=== PATIENT | female | born 1970 | race Caucasian/White ===

== ENCOUNTER 2016-09-18 04:48 | Emergency (ER) | payer OTHER ==
[~2016-09-18] VITALS: Ht 162.6 cm; Wt 113.4 kg
--- NOTE | ~2016-09-18 | CT4 ---
[facility] A Service of [facility] RADIOLOGY TEXT RESULTS PATIENT: HARRISON GONZALEZ LOCATION: [facility] : [birth year] UNIT #: [id number] AGE: [address]: Carmela Kinsey MD SEX: F ORDER DR: [id number] [facility] [address] [place], [place] [address] [id number] E MR#: [id number] Acc #: [id number] NAME: HARRISON GONZALEZ : 1970 SEX: F STUDY DATE/TIME: 09/18/2016 6:41 UNIT: [facility] ROOM: STUDY DESCRIPTION: CT Abd and Pelv Wo Cont Attending Physician: Carmela Kinsey M.D. Ordering Physician: Carmela Kinsey M.D. Primary Care Physician: Lola Pineda Aprn MEDICAL IMAGING REPORT This report is preliminary unless electronic signature is present EXAM Abdomen and pelvis CT without HISTORY Low back pain and spasms, worse today. Pain goes into the right side with leg weakness. 46-year-old female history of a hysterectomy. No history of cancer. COMMENT CT of the abdomen and pelvis performed in the axial plane without IV or oral contrast media using urinary tract stone protocol. Lack of intravenous and oral contrast media limits evaluation for pathology other than urinary tract calculus disease. This CT exam was performed with one or more of the following radiation dose reduction techniques: Automatic exposure control, adjustment of mA and/or kV according to patient size, and iterative reconstruction. COMPARISON There are is no comparison. FINDINGS Lung bases show mild atelectasis. Partly seen is a probable lymph node left lower axillary region about 1.0 cm dimension. Suggest clinical followup. If the patient has not had a recent mammogram, this is recommended. CT ABDOMEN: There is probably a mild fatty infiltration of the liver by Hounsfield unit measurements. The adrenal glands, spleen, noncontrast pancreas, gallbladder are unremarkable. There is a low-attenuation area in the posterior right interpolar kidney about 1.5 cm in diameter. It is probably a cyst but should be completely characterized with an ultrasound given its size. There is no abdominal aortic aneurysm. There is no intrarenal calculus or hydronephrosis. No ureteral calculus is seen. [facility] A Service of [facility] & [facility] RADIOLOGY TEXT RESULTS PATIENT: HARRISON GONZALEZ LOCATION: [facility] : [birth year] UNIT #: [id number] AGE: [address]: Carmela Kinsey MD SEX: F ORDER DR: Evaluation of the pelvis shows the bladder is decompressed and no bladder calculus is seen. Patient is post hysterectomy by history. There is likely a mass associated with the right ovary with calcification within it. This should be further evaluated with pelvic ultrasound. Main consideration at this time would be dermoid. No clear fat attenuation is appreciated. The lesion measures about 4.2 x 3.3 x 2.9 cm in dimension. Probably a left adnexal cyst but this would also be better characterized with ultrasound and it measures about 3 cm dimension. There is no free fluid in the pelvis. No drainable fluid collection suspected. There is no evidence for bowel obstruction or free intraperitoneal air. The appendix is borderline in size measuring up to about 1.1 cm in diameter but there is no periappendiceal inflammatory change. I would doubt that this is a manifestation of appendicitis, but please correlate further clinically as well given the size measurement. The evaluation of the appendix is limited on a CT without IV or oral contrast media. Degenerative change is noted at L5-S1. IMPRESSION 1. There is likely mild diffuse fatty infiltration of the liver. 2. There is no evidence for urinary tract calculus disease. Probable right lower pole renal cyst up to about 1.5 cm in diameter should be characterized more completely with an ultrasound. 3. There is a mass in the right pelvis associated with the right ovary with chunky calcification measuring up to 4.2 cm in largest dimension. It should be further characterized with a pelvic ultrasound. A dermoid is in the current differential. No obvious fat attenuation is appreciated. There is a smaller mass associated with the left ovary up to about 3 cm in dimension and this is also best characterized with pelvic ultrasound follow up. By report, the patient is post hysterectomy. 4. The appendix is mildly enlarged by measurement criteria to about 1.1 cm in diameter. There is, however, no periappendiceal inflammatory change or suspected fluid collection. I doubt appendicitis but the size is increased and I would recommend further correlation with clinical presentation also. Please aware that this is a study without IV or oral contrast media and, therefore, it is more limited for evaluation for appendicitis. 5. 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 6. Mild enlarged lymph node lower left axilla, nonspecific. Please correlate with the clinical findings and if patient has not had a recent mammogram this is recommended. STAT * RESULT Dictated by... Amanda Valdez M.D. [facility] A Service of [facility] RADIOLOGY TEXT RESULTS PATIENT: HARRISON GONZALEZ [id number] [birth year] UNIT #: [id number] AGE: [address]: Carmela Kinsey MD SEX: F ORDER DR: THIS IS AN ELECTRONICALLY VERIFIED REPORT Amanda Valdez M.D. at 09/18/2016 4:10 PM SALO/silvia TD: 09/18/2016 07:19 JOB #: [id number] MEDICAL IMAGING REPORT Page 1 of 1 COPY
[~2016-09-18 04:48] MED LIST: ARIXTRA7.5 MG/0.6 SQ; COUMADIN5 MG PO; FEOSOL PO; LOVENOX SUBQ
== END 2016-09-18 07:32 | disposition home or self-care (01) ==
LOC: CED 04:48
DX: M62.830 Muscle spasm of back (principal); N83.201 Unspecified ovarian cyst, right side; I10 Essential (primary) hypertension; Z90.710 Acquired absence of both cervix and uterus
CPT/HCPCS: 74176; 99284

== ENCOUNTER → 2016-10-14 | Outpatient (CLI) | payer OTHER ==
--- NOTE | ~2016-10-14 | US98 ---
[facility] A Service of [facility] & [facility] RADIOLOGY TEXT RESULTS PATIENT: HARRISON GONZALEZ LOCATION: [facility] : [birth year] UNIT #: [id number] AGE: [address]: Feliberto Asif MD SEX: F ORDER DR: [id number] [facility] [address] [place], [place] [address] [id number] O MR#: [id number] Acc #: [id number] NAME: HARRISON GONZALEZ : 1970 SEX: F STUDY DATE/TIME: 10/14/2016 11:36 UNIT: [facility] ROOM: STUDY DESCRIPTION: US Pelvic Non-OB Complete Attending Physician: Feliberto Asif M.D. Referring Physician: Feliberto Asif M.D. Ordering Physician: Feliberto Asif M.D. Primary Care Physician: Lola Pineda Aprn MEDICAL IMAGING REPORT This report is preliminary unless electronic signature is present EXAM Pelvic ultrasound transabdominal technique 10/14/2016 INDICATION 46-year-old female with an abnormal CT scan performed 09/18/2016 right pelvic mass. Probable ovarian mass. History of partial hysterectomy and surgery for endometriosis. Iron deficiency anemia. TECHNIQUE Sonographic imaging of the pelvis was performed transabdominally only. The patient refused transvaginal imaging. Correlation is made with CT 09/18/2016. FINDINGS TRANSABDOMINAL IMAGING: The left ovary measures 2.2 x 2.1 x 2.5 cm and the right measures 3.5 x 2.5 x 3.6 cm. The uterus is surgically absent. There is flow in both ovaries at the time of the study. There is a dominant follicle or small cyst that replaces the majority of the left ovarian tissue. No free fluid or drainable fluid collection. There are shadowing calcifications associated with right ovary, corresponding to dystrophic calcifications on the prior CT as well. No distinct evidence of a dermoid or teratoma. Overall echogenicity of the right ovary is otherwise nonspecific but may reflect a mildly prominent right ovary or an involuting proteinaceous or hemorrhagic cyst. Consider interval followup ultrasound in 6-8 weeks after subsequent menstrual cycles to reassess stability of the right ovary. IMPRESSION 1. Surgical absence of the uterus. 2. Unremarkable appearance of the left ovary. 3. Mildly prominent right ovary compared to the left with dystrophic calcifications similar to those seen on the prior CT. This probably STS. [facility] A Service of [facility] RADIOLOGY TEXT RESULTS PATIENT: HARRISON GONZALEZ LOCATION: [facility] : [birth year] UNIT #: [id number] AGE: [address]: Feliberto Asif MD SEX: F ORDER DR: reflects a benign process and could reflect sequela of a proteinaceous or hemorrhagic cyst or simply an asymmetrically prominent right ovary. No distinct evidence of dermoid or teratoma. Consider a followup ultrasound in 6-8 weeks after subsequent menstrual cycles for reassessment. Dictated by... Ahmet Veloz M.D. THIS IS AN ELECTRONICALLY VERIFIED REPORT Ahmet Veloz M.D. at 10/15/2016 7:19 AM MANPREET/maximino TD: 10/14/2016 18:14 JOB #: [id number] MEDICAL IMAGING REPORT Page 1 of 1 COPY
== END | disposition home or self-care (01) ==
LOC: CWCC 11:19
DX: N83.9 Noninflammatory disorder of ovary, fallopian tube and broad ligament, unspecified (principal); D50.0 Iron deficiency anemia secondary to blood loss (chronic); I82.409 Acute embolism and thrombosis of unspecified deep veins of unspecified lower extremity; I26.99 Other pulmonary embolism without acute cor pulmonale; N83.8 Other noninflammatory disorders of ovary, fallopian tube and broad ligament; Z90.711 Acquired absence of uterus with remaining cervical stump
CPT/HCPCS: 76856

== ENCOUNTER → 2016-10-26 | Outpatient (CLI) | payer OTHER ==
--- NOTE | ~2016-10-26 | MY29 ---
[facility] A Service of [facility] RADIOLOGY TEXT RESULTS PATIENT: HARRISON GONZALEZ LOCATION: [facility] : [birth year] UNIT #: [id number] AGE: [address]: Feliberto Asif MD SEX: F ORDER DR: [id number] [facility] [address] [place], [place] [address] [id number] O MR#: [id number] Acc #: [id number] NAME: HARRISON GONZALEZ. : 1970 SEX: F STUDY DATE/TIME: 10/26/2016 9:18 UNIT: [facility] ROOM: STUDY DESCRIPTION: MY HERB SCREENING W/ CAD BILAT Attending Physician: Feliberto Asif M.D. Referring Physician: Feliberto Asif M.D. Ordering Physician: Feliberto Asif M.D. Primary Care Physician: Lola Pineda Aprn MEDICAL IMAGING REPORT This report is preliminary unless electronic signature is present EXAM Bilateral digital screening mammogram with CAD. HISTORY Routine screening. No current complaints. Family history of breast cancer in great aunt. COMPARISON 10/14/2016. FINDINGS MLO and CC digital views of each breast were obtained. The exam was reviewed with an FDA-approved CAD device. Breasts are almost entirely fatty replaced. There are no masses or abnormal calcifications. IMPRESSION No evidence of malignancy. Patients over the age of 40 are entered into a reminder system with target due date for the next mammogram. A result letter will also be sent to the patient. BIRADS: 1 Negative Dictated by... Scooter Hadley M.D. THIS IS AN ELECTRONICALLY VERIFIED REPORT Scooter Hadley M.D. at 10/26/2016 3:10 PM FEL/psc TD: 10/26/2016 14:16 [facility] A Service of [facility] RADIOLOGY TEXT RESULTS PATIENT: HARRISON GONZALEZ LOCATION: [facility] : [birth year] UNIT #: [id number] AGE: [address]: Feliberto Asif MD SEX: F ORDER DR: JOB #: [id number] MEDICAL IMAGING REPORT Page 1 of 1 COPY
== END | disposition home or self-care (01) ==
LOC: CWCC 08:42
DX: Z12.31 Encounter for screening mammogram for malignant neoplasm of breast (principal); Z80.3 Family history of malignant neoplasm of breast
CPT/HCPCS: G0202

== ENCOUNTER → 2016-11-10 | Outpatient (CLI) | payer OTHER ==
--- NOTE | ~2016-11-10 | CT55 ---
[facility] A Service of [facility] RADIOLOGY TEXT RESULTS PATIENT: HARRISON GONZALEZ LOCATION: [facility] : [birth year] UNIT #: [id number] AGE: [address]: Feliberto Asif MD SEX: F ORDER DR: [id number] [facility] [address] [place], [place] [address] [id number] O MR#: [id number] Acc #: [id number] NAME: HARRISON GONZALEZ : 1970 SEX: F STUDY DATE/TIME: 11/10/2016 13:04 UNIT: [facility] ROOM: STUDY DESCRIPTION: CT Chest W Con Attending Physician: Feliberto Asif M.D. Referring Physician: Feliberto Asif M.D. Ordering Physician: Feliberto Asif M.D. Primary Care Physician: Lola Pineda Aprn MEDICAL IMAGING REPORT This report is preliminary unless electronic signature is present EXAM CT chest with contrast INDICATIONS Shortness of air and cough for the past 2 years. PROCEDURE Contrast-enhanced CT chest. This CT exam was performed with one or more of the following radiation dose reduction techniques: automatic control, adjustment of mA and/or kV according to patient size, and iterative reconstruction. COMPARISON 04/21/2012 FINDINGS The lungs are clear. No pleural fluid or pneumothorax. A 1.5 cm right thyroid lobe nodule. No adenopathy. No acute findings in the included upper abdomen. No aggressive appearing bone lesion. Likely hepatic steatosis. IMPRESSION 1. No acute findings in the chest. 2. Likely hepatic steatosis. 3. 1.5 cm right thyroid lobe nodule would be best evaluated with a dedicated thyroid ultrasound Dictated by... Phil Cage M.D. THIS IS AN ELECTRONICALLY VERIFIED REPORT Phil Cage M.D. at 11/11/2016 7:03 AM EED/rnr [facility] A Service of [facility] RADIOLOGY TEXT RESULTS PATIENT: HARRISON GONZALEZ LOCATION: [facility] : [birth year] UNIT #: [id number] AGE: [address]: Feliberto Asif MD SEX: F ORDER DR: TD: 11/11/2016 02:16 JOB #: [id number] MEDICAL IMAGING REPORT Page 1 of 1 COPY
[2016-11-10 15:56] LABS: POC - CREATININE 1.02 mg/dL (0.44-1.03); POC - GFR >60.0 mL/min (>60)
== END | disposition home or self-care (01) ==
LOC: CCAT 12:02
PROVIDERS: Internal Medicine Hematology
DX: D50.0 Iron deficiency anemia secondary to blood loss (chronic) (principal); I82.409 Acute embolism and thrombosis of unspecified deep veins of unspecified lower extremity; I26.99 Other pulmonary embolism without acute cor pulmonale; E04.1 Nontoxic single thyroid nodule
CPT/HCPCS: 71260; 82565; Q9967